=== PATIENT | female | born 1965 | race Caucasian/White ===

== ENCOUNTER 2021-12-16 10:45 | Day surgery (SDC) | payer BC, OTHER ==
[2021-12-16] MEDS ORDERED: Propofol 200 MG/20 ML SDV IV ONE (10:46)
[2021-12-16] MEDS: Lactated Ringers 1,000 ML IV SCH (11:13)
[2021-12-16] MEDS ORDERED: Sodium Chloride 0.9% 10 ML Syringe FLUSH PRN (11:30)
[2021-12-16] MEDS ORDERED: Midazolam 1 MG/ML 2 ML SDV ONE (11:54)
[2021-12-16] MEDS ORDERED: Propofol 200 MG/20 ML SDV ONE ×2 (11:54→12:44)
== END 2021-12-16 14:30 | disposition home or self-care (01) ==
LOC: KA.SDS 10:45
PROVIDERS: ATTEND Family Medicine
DX: D12.7 Benign neoplasm of rectosigmoid junction (principal); K57.30 Diverticulosis of large intestine without perforation or abscess without bleeding; E78.00 Pure hypercholesterolemia, unspecified; F41.9 Anxiety disorder, unspecified; F33.9 Major depressive disorder, recurrent, unspecified; Z79.899 Other long term (current) drug therapy
CPT/HCPCS: 00812; J2250; J2704; J7120